=== PATIENT | male | born 1985 | race Hispanic/Latino ===

== ENCOUNTER 2022-12-01 18:36 | Emergency (ER) | payer OTHER ==
[~2022-12-01] VITALS: Ht 177.8 cm; Wt 79.4 kg
[2022-12-01] MEDS ORDERED: ONDANSETRON HCL INJ 2MG/ML 2ML 2 MG/ML VIAL IV STA ×2 (19:04→21:30)
[2022-12-01] MEDS ORDERED: Morphine 4mg INJECTION 4 MG/ML INJ ONE (19:07)
[2022-12-01] MEDS ORDERED: SODIUM CHLORIDE 0.9% 1000ML 1,000 ML IV SCH (19:15)
[2022-12-01] MEDS ORDERED: Morphine 4mg INJECTION 4 MG/ML INJ IV ONE ×2 (19:15→21:30)
[2022-12-01] MEDS ORDERED: SODIUM CHLORIDE FLUSH 10 ML SYR IV PRN (19:15)
[2022-12-01 19:17] LABS: BASOPHILS # (AUTO) 0.1 (0.0-0.1); BASOPHILS % 0.7 % (0.0-1.0); EOSINOPHILS # (AUTO) 0.1 (0.0-0.4); EOSINOPHILS % 1.8 % (0.0-6.0); HEMATOCRIT 46.2 % (38.2-49.6); HEMOGLOBIN 14.7 g/dL (14.0-18.0); LYMPHOCYTES # (AUTO) 2.6 (1.0-3.2); LYMPHOCYTES % 36.8 % (18.0-39.1); MEAN CORPUSCULAR HEMOGLOBIN 30.2 pg (28-32); MEAN CORPUSCULAR HGB CONC 31.8 g/dL (31-35); MEAN CORPUSCULAR VOLUME 95.1 fL (81-99); MONOCYTES # (AUTO) 0.8 (0.2-0.8); MONOCYTES % 11.3 % (4.4-11.3); NEUTROPHILS # (AUTO) 3.5 (2.1-6.9); PLATELET COUNT 212 x10e3/uL (140-360); RED BLOOD COUNT 4.86 x10e6/uL (4.3-5.7); RED CELL DISTRIBUTION WIDTH 13.9 % (11.7-14.4)
[2022-12-01 19:37] LABS: ALBUMIN 4.3 g/dL (3.5-5.0); ALBUMIN/GLOBULIN RATIO 1.2 (0.8-2.0); ANION GAP 15.8 mmol/L (8-16); CALCIUM 9.9 mg/dL (8.4-10.2); CREATININE, SERUM 1.19 mg/dL (0.72-1.25); POTASSIUM 3.8 mmol/L (3.5-5.1)
[2022-12-01] MEDS ORDERED: KETOROLAC TROMETHAMINE 30 MG/ML VIAL IV STA (20:13)
[2022-12-01 20:19] LABS: AMPHETAMINES SCREEN,URINE NEGATIVE (NEGATIVE); BENZODIAZEPINES SCREEN,URINE NEGATIVE (NEGATIVE); CLARITY,URINE SL CLOUDY (CLEAR); COLOR,URINE YELLOW (YELLOW); KETONES,URINE NEGATIVE (NEGATIVE); LEUKOCYTE ESTERASE ,URINE NEGATIVE (NEGATIVE); NITRITE,URINE NEGATIVE (NEGATIVE); PHENCYCLIDINE SCREEN,URINE NEGATIVE (NEGATIVE); PROTEIN,URINE DIPSTICK NEGATIVE (NEGATIVE); URINE UROBILINOGEN 0.2 mg/dL (0.2 - 1)
[2022-12-01 20:29] LABS: BACTERIA,URINE MODERATE /HPF
[2022-12-01] MEDS ORDERED: MIRALAX17 GM PO (21:35)
[2022-12-01] MEDS ORDERED: ONDANSETRON ODT4 MG PO (21:35)
[2022-12-01] MEDS ORDERED: DICYCLOMINE HCL20 MG PO (21:35)
[2022-12-01] MEDS ORDERED: NAPROSYN500 MG PO (21:38)
[2022-12-01] MEDS ORDERED: DICYCLOMINE HCL 20 MG/2 ML VIAL IM ONE (21:45)
== END 2022-12-01 21:59 | disposition home or self-care (01) ==
LOC: ER 18:40
DX: M54.50 Low back pain, unspecified (principal); K59.00 Constipation, unspecified; R10.32 Left lower quadrant pain; R11.2 Nausea with vomiting, unspecified; M79.7 Fibromyalgia
CPT/HCPCS: 36415; 74176; 80053; 80307; 81001; 83690; 85025; 99284; J0500; J1885; J2270; J2405; J7030

== ENCOUNTER 2022-12-07 16:46 | Emergency (ER) | payer OTHER ==
[~2022-12-07] VITALS: Ht 167.6 cm; Wt 66.7 kg
[~2022-12-07 16:46] MED LIST: DICYCLOMINE HCL20 MG PO; MIRALAX17 GM PO; NAPROSYN500 MG PO; ONDANSETRON ODT4 MG PO
[2022-12-07 17:28] LABS: BASOPHILS % 0.5 % (0.0-1.0); EOSINOPHILS # (AUTO) 0.1 (0.0-0.4); EOSINOPHILS % 1.4 % (0.0-6.0); HEMATOCRIT 45.5 % (38.2-49.6); HEMOGLOBIN 15.2 g/dL (14.0-18.0); LYMPHOCYTES # (AUTO) 2.9 (1.0-3.2); LYMPHOCYTES % 49.9 % (18.0-39.1); MEAN CORPUSCULAR HEMOGLOBIN 31.1 pg (28-32); MEAN CORPUSCULAR HGB CONC 33.4 g/dL (31-35); MEAN CORPUSCULAR VOLUME 93.2 fL (81-99); MONOCYTES # (AUTO) 0.6 (0.2-0.8); MONOCYTES % 10.5 % (4.4-11.3); NEUTROPHILS # (AUTO) 2.2 (2.1-6.9); NEUTROPHILS % 37.5 % (38.7-80.0); PLATELET COUNT 260 x10e3/uL (140-360); RED BLOOD COUNT 4.88 x10e6/uL (4.3-5.7); RED CELL DISTRIBUTION WIDTH 12.8 % (11.7-14.4)
[2022-12-07 18:16] LABS: AMPHETAMINES SCREEN,URINE NEGATIVE (NEGATIVE); BENZODIAZEPINES SCREEN,URINE NEGATIVE (NEGATIVE); CLARITY,URINE CLEAR (CLEAR); COLOR,URINE YELLOW (YELLOW); KETONES,URINE 2+ (NEGATIVE); LEUKOCYTE ESTERASE ,URINE NEGATIVE (NEGATIVE); NITRITE,URINE NEGATIVE (NEGATIVE); PHENCYCLIDINE SCREEN,URINE NEGATIVE (NEGATIVE); PROTEIN,URINE DIPSTICK NEGATIVE (NEGATIVE); URINE UROBILINOGEN 0.2 mg/dL (0.2 - 1)
[2022-12-07 18:28] LABS: RBC,URINE 0-5 /HPF (0-5)
[2022-12-07 18:31] LABS: ALBUMIN/GLOBULIN RATIO 1.3 (0.8-2.0); ANION GAP 17.6 mmol/L (8-16); CALCIUM 10.3 mg/dL (8.4-10.2); CREATININE, SERUM 1.05 mg/dL (0.72-1.25); POTASSIUM 3.6 mmol/L (3.5-5.1)
[2022-12-07] MEDS ORDERED: SODIUM CHLORIDE 0.9% 1000ML 1,000 ML IV STA (18:35)
[2022-12-07] MEDS ORDERED: FAMOTIDINE 20 MG/2 ML VIAL IV STA (18:38)
[2022-12-07] MEDS ORDERED: KETOROLAC TROMETHAMINE 30 MG/ML VIAL IV STA (18:38)
[2022-12-07] MEDS ORDERED: IOPAMIDOL 370 MG/ML 100 ML INFUS..BTL INJ ONE (18:48)
[2022-12-07] MEDS ORDERED: LACTULOSE SYRUP 20 GM/30 ML UDC PO ONE (19:30)
[2022-12-07] MEDS ORDERED: LACTULOSE SYRUP 20 GM/30 ML UDC ONE (19:31)
[2022-12-07 19:49] VITALS: BP 124/70
== END 2022-12-07 19:59 | disposition home or self-care (01) ==
LOC: ER 16:52
DX: R10.32 Left lower quadrant pain (principal); K59.00 Constipation, unspecified; R11.2 Nausea with vomiting, unspecified; M79.7 Fibromyalgia
CPT/HCPCS: 36415; 74177; 80053; 80307; 81001; 83690; 85025; 99284; J1885; J7030; Q9967